=== PATIENT | female | born 2005 | race Hispanic/Latino ===

== ENCOUNTER 2025-02-05 16:06 | Emergency (ER) | payer BC ==
[~2025-02-05] VITALS: Ht 157.5 cm; Wt 78.0 kg
[2025-02-05 16:20] VITALS: TEMP 98.8
[2025-02-05] MEDS: CLINDAMYCIN 150 MG CAP PO ONE (16:20)
[2025-02-05] MEDS ORDERED: CLIN-141 PO (16:32)
--- NOTE | 2025-02-05 16:37 | ERN ---
ED Note History of Present Illness Stated Complaint: LUMP TO UPPER BACK/ PAIN Chief Complaint: Other Problems Time Seen by MD: 16:09 Dictation: PATIENT IS A 19-YEAR-OLD FEMALE COMING IN TODAY WITH A LUMP/CYST TO HER RIGHT UPPER BACK SHE HAS HAD FOR TWO YEARS. SHE STATES IT DID NOT START HURTING RECENTLY UNTIL LAST WEEK DID NOT GO SEE HER PRIMARY CARE DOCTOR. NOW SHE WANTS A SURGEON TO TAKE IT OUT TODAY. SHE HAS HAD NO FEVER NO CHILLS THERE WAS NO FLUCTUANCE IN HIS NOT MOBILE AND FIRM TO TOUCH. DIALYZER I COULD NOT DO THIS I COULD TREAT THE PAIN AND REFER HER TO A SURGEON NEXT WEEK. Allergies: Coded Allergies: No Known Drug Allergies (Unverified Allergy, Unknown, 02/05/25) Past Medical History Past Medical History: Other Additional Past Medical Hx: PCOS Surgical History: Tonsillectomy LMP: Jan 16, 2025 RN Note Reviewed/Agreed w/PFSH: Yes Review of System Dictation CONSTITUTIONAL: NEGATIVE EXCEPT FOR HPI HEAD/FACE: NEGATIVE EXCEPT FOR HPI EENT: NEGATIVE EXCEPT FOR HPI RESPIRATORY: NEGATIVE EXCEPT FOR HPI GASTROINTESTINAL/ABDOMINAL: NEGATIVE EXCEPT FOR HPI GENITOURINARY: NEGATIVE EXCEPT FOR HPI MUSCULOSKELETAL: NEGATIVE EXCEPT FOR HPI INTEGUMENTARY: NEGATIVE EXCEPT FOR HPI CYST TO RIGHT UPPER BACK THORACIC REGION NEUROLOGICAL/PSYCH: NEGATIVE EXCEPT FOR HPI HEMATOLOGIC/LYMPHATIC: NEGATIVE EXCEPT FOR HPI ALL SYSTEMS NEGATIVE, EXCEPT NOTED ABOVE. 13 POINT REVIEW OF SYSTEMS ASSESSED AND ALL NEGATIVE EXCEPT FOR ABOVE. Initial Vital Sign VS Vital Signs Date Time Temp Pulse Resp B/P (MAP) Pulse Ox O2 Delivery O2 Flow Rate FiO2 02/05/25 16:10 98.8 83 18 113/75 99 5.0 Physical Exam Dictation VITAL SIGNS REVIEWED GENERAL APPEARANCE: ALERT, ORIENTED X 3, N MILD ACUTE DISTRESS, WELL DEVELOPED, NOURISHED. HEAD AND FACE: NON-TRAUMATIC. EYES: PERRL, PINK CONJUNCTIVAS, EYELID NO TRAUMA, ANTERIOR CHAMBER WITH ARCUS SENILIS. EARS: PINNAS INTACT AND NO SIGNS OF TRAUMA OR ERYTHEMA EAR CANALS CLEAR AND NO DISCHARGE TM NO ERYTHEMA NOSE: NO DISCHARGE, NO BLEEDING. OROPHARYNX: MOUTH NORMAL, TONGUE PINK, PHARYNX CLEAR,NO ERYTHEMA, TONSILS NO EXUDATES, NO ABSCESSES NOTED, MUCOUS MEMBRANE MOIST NECK: SUPPLE, NON-TENDER, NO THYROMEGALY, NO MASSES, NO JVD, NO BRUITS BREAST:DEFERRED CHEST:NO TENDERNESS, NO CREPITUS, NO PARADOXICAL MOVEMENT, NO RETRACTIONS LUNGS:CLEAR, WELL-VENTILATED, SYMMETRIC, NO RALES, NO WHEEZING, NO RHONCHI, NO STRIDOR, GOOD BREATH SOUNDS BILATERALLY HEART: REGULAR RATE, REGULAR RHYTHM, NO MURMUR, NO GALLOPS VASCULAR: NO PERIPHERAL EDEMA, ABDOMEN: SOFT, POSITIVE BOWEL SOUNDS, NONDISTENDED, NO GUARDING, NONTENDER, NO REBOUND, NO MASSES NO HEPATOMEGALY, NO SPLENOMEGALY, NO VELASCO'S SIGN, NO HERNIAS. RECTAL: DEFERRED GENITAL: DEFERRED NEUROLOGICAL: NORMAL SPEECH, MOTOR FUNCTION INTACT, SENSORY FUNCTION INTACT MUSCULOSKELETAL: NECK NONTENDER, FULL RANGE OF MOTION, BACK NONTENDER, FULL RANGE OF MOTION, EXTREMITIES: NONTENDER, FULL RANGE OF MOTION SKIN: COLOR PINK,2 X 2 CM SUBCUTANEOUS CYST THIS IS FIRM TO TOUCH THERE WAS NO FLUCTUANCE NO INDURATION NO ERYTHEMA TO RIGHT UPPER BACK LYMPHATIC: DEFERRED Results (Laboratory/Radiology) Labs Reviewed?: Yes ED Course ED Course Orders Procedure Category Date Status Time Clindamycin 150mg Cap PHA 02/05/25 In Process (Cleocin 150mg Cap 16:30 Acetaminophen 500mg PHA 02/05/25 In Process Tab (Tylenol 500mg T 16:30 Current Medications Medications (Trade) Dose Ordered Sig/Tarun Route PRN Reason Start Time Stop Time Status Last Admin Dose Admin Acetaminophen (TYLenol 500MG TAB) 1,000 mg ONCE ONCE PO 02/05/25 16:30 02/05/25 16:31 02/05/25 16:20 Clindamycin HCl (Cleocin 150mg Cap) 600 mg ONCE ONCE PO 02/05/25 16:30 02/05/25 16:31 02/05/25 16:20 Vital Signs Date Time Temp Pulse Resp B/P (MAP) Pulse Ox O2 Delivery O2 Flow Rate FiO2 02/05/25 16:20 98.8 02/05/25 16:10 98.8 83 18 113/75 99 5.0 Medical Decision Making [facility] 1630/MEDICAL DISCHARGE MAKING BASED ON HPI AND EXAMINATION. WITH POLICE ON CLINDAMYCIN REFERRED TO GENERAL SURGERY FOR NEXT FOLLOW UP DX & DISP Disposition: Discharge Departure Impression: Primary Impression: Cyst of subcutaneous tissue Condition: Stable Scripts Clindamycin HCl (Clindamycin HCl) 300 Mg Capsule 1 CAP PO QID for 7 Days, #28 CAP 0 Refills Prov: RHEJAIDA MOLINA 02/05/25 Additional Instructions: FOLLOW-UP WITH PRIMARY CARE PROVIDER IN 1 TO 2 DAYS. TAKE MEDICATIONS DIRECTED HERE IN THE EMERGENCY ROOM. OKAY TO CONTINUE HOME MEDICATIONS UNLESS OTHERWISE DISCUSSED DURING YOUR VISIT IN THE EMERGENCY ROOM TODAY. RETURN TO YOUR NEAREST EMERGENCY ROOM IF SYMPTOMS WORSEN OR IF THERE IS NO IMPROVEMENT. CALL 911 IF YOU NEED IMMEDIATE ASSISTANCE. TAKE TYLENOL OR MOTRIN [id number] NEEDED AND IF NO CONTRAINDICATIONS ARE PRESENT. INCREASE ORAL HYDRATION. A WOUND CULTURE OR URINE CULTURE WAS ORDERED HERE IN THE [facility] DEPARTMENT PLEASE FOLLOW-UP WITH PRIMARY CARE PROVIDER AND ADVISE THEM TO GET REPEAT PORTS FROM OUR FACILITY. IF YOU HAD ANY ADELE WRAP/SPLINTS THAT WERE APPLIED HERE, PLEASE DO NOT REMOVE THEM UNTIL YOU SEE YOUR PRIMARY CARE OR SPECIALTY. TAKE CLINDAMYCIN DIRECTED UNTIL GONE. CALL GENERAL SURGEON FOR AN APPOINTMENT ON FRIDAY FOR FOLLOW UP NEXT WEEK Referrals: SELF,REFERRAL (PCP) HAY SINHA DO Time of Disposition: 16:32 I have reviewed the case, and I agree with, Diagnosis and Plan JAIDA MATHEW Feb 05, 2025 16:37
[2025-02-05 16:41] VITALS: BP 117/68; PULSE 80; RESP 18; TEMP 98.7; O2SAT 99
--- NOTE | 2025-02-05 16:53 | NUR ---
PT D/C HOME, STABLE NO DISTRESS VITALS WNL NO C/O PAIN NOW, PT GIVEN INSTRUCTION FOR HOME VERBALIZED UNDERSTANDING, PT GIVEN TWO RX FOR PHARMACY WILL START TODAY. PT DRIVEN HOME BY FAMILY.
== END 2025-02-05 17:01 | disposition home or self-care (01) ==
LOC: EDH 16:06
DX: L72.9 Follicular cyst of the skin and subcutaneous tissue, unspecified (principal); Z90.89 Acquired absence of other organs
CPT/HCPCS: 99283